=== PATIENT | female | born 1990 | race Caucasian/White ===

== ENCOUNTER 2017-04-12 19:14 | Emergency (ER) | payer OTHER ==
--- NOTE | 2017-04-12 19:26 | ER Report ---
History and Physical Time Seen By MD: 19:25 HPI/ROS CHIEF COMPLAINT: Abdominal pain HISTORY OF PRESENT ILLNESS: Patient awoke at 0800 with abdominal pain diffuse in the right lower quadrant. Appetite has been poor. Diarrhea 1. Nausea without vomiting. Possible somewhat late on her menstrual cycle reports she has moved recently and is sinking up with other females in her dwelling. She is sexually active. No pelvic pain or vaginal bleeding. REVIEW OF SYSTEMS: Constitutional: No fever, positive chills. Eyes: No discharge. ENT: No sore throat. Cardiovascular: No chest pain, no palpitations. Respiratory: No cough, no shortness of breath. Gastrointestinal: No bloody stools Genitourinary: No hematuria. Musculoskeletal: No back pain. Skin: No rashes. Neurological: No headache. Allergies: Coded Allergies: No Known Drug Allergies (Unverified , 04/12/17) Home Meds No Active Prescriptions or Reported Meds Constitutional Vital Sign - Last 24 Hours 04/12/17 04/12/17 04/12/17 04/12/17 19:15 19:44 19:45 20:00 Temp 98.2 Pulse 102 119 Resp 16 B/P (MAP) 124/88 120/78 (92) 124/76 (92) Pulse Ox 93 99 O2 Delivery Room Air 04/12/17 04/12/17 04/12/17 04/12/17 20:15 20:30 20:45 21:15 Pulse 95 97 108 104 Pulse Ox 97 96 95 98 04/12/17 21:50 Pulse 98 Resp 16 B/P (MAP) 112/73 (86) Pulse Ox 92 O2 Delivery Room Air Intake and Output 04/12/17 04/12/17 04/13/17 15:00 23:00 07:00 Intake Total 50 ml Balance 50 ml Physical Exam General Appearance: The patient is alert, has no immediate need for airway protection and no signs of toxicity. Appears sick but not toxic Eyes: Pupils equal and round no pallor or injection. ENT, Mouth: Mucous membranes are moist. Respiratory: There are no retractions, lungs are clear to auscultation. Cardiovascular: Regular rate and rhythm. No murmurs gallops or rubs Gastrointestinal: Abdomen is soft and diffusely tender, tenderness is most prominent in the right lower quadrant, no masses, bowel sounds normal. : pelvic, lube technician Lili Cook; copious green discharge pours from vaginal vault; no adnexal mass, tenderness with cervical motion (+chandlier's sign) Neurological: A and O 4 tenderness for cranial nerves intact motor and sensation grossly intact Skin: Warm and dry, no rashes. Musculoskeletal: Neck is supple non tender. Extremities are nontender, nonswollen and have full range of motion. No edema DIFFERENTIAL DIAGNOSIS: After history and physical exam differential diagnosis was considered for appendicitis, diverticulitis, enteritis, colitis, IBS. No signs of AAA. This is an incomplete list. Medical Decision Making Data Points Result Diagram: 04/12/17202204/12/172022 Laboratory Hematology Test 04/12/17 19:30 04/12/17 20:23 Urine Color Straw Urine Clarity Clear Urine pH 6.0 pH (4.8-9.5) Urine Specific [place] 1.002 Urine Protein Negative mg/dL (NEGATIVE) Urine Glucose (UA) Negative mg/dL (NEGATIVE) Urine Ketones Negative mg/dL (NEGATIVE) Urine Blood Moderate (NEGATIVE) Urine Nitrite Negative (NEGATIVE) Urine Bilirubin Negative (NEGATIVE) Urine Urobilinogen Negative mg/dL (0.2-1.9) Urine Leukocyte Esterase Large (NEGATIVE) Urine RBC 6 /HPF (0-2/HPF) Urine WBC 28 /HPF (0-5/HPF) Urine Squamous Epithelial Cells Many /LPF (</=FEW) Urine Bacteria Negative /HPF (NONE-FEW) Urine Mucus None /HPF (NONE-FEW) Red Blood Count 4.99 M/uL (4.17-5.56) Mean Corpuscular Volume 87.5 fL (80.0-96.0) Mean Corpuscular Hemoglobin 30.0 pg (26.0-33.0) Mean Corpuscular Hemoglobin Concent 34.3 g/dL (32.0-36.0) Red Cell Distribution Width 13.0 % (11.5-14.5) Mean Platelet Volume 9.5 fL (7.2-11.1) Neutrophils (%) (Auto) 80.1 % (39.4-72.5) Lymphocytes (%) (Auto) 12.1 % (17.6-49.6) Monocytes (%) (Auto) 7.3 % (4.1-12.4) Eosinophils (%) (Auto) 0.2 % (0.4-6.7) Basophils (%) (Auto) 0.3 % (0.3-1.4) Nucleated RBC Relative Count (auto) 0.0 /100WBC Neutrophils # (Auto) 13.1 K/uL (2.0-7.4) Lymphocytes # (Auto) 2.0 K/uL (1.3-3.6) Monocytes # (Auto) 1.2 K/uL (0.3-1.0) Eosinophils # (Auto) 0.0 K/uL (0.0-0.5) Basophils # (Auto) 0.0 K/uL (0.0-0.1) Nucleated RBC Absolute Count (auto) 0.01 K/uL Sodium Level 137 mmol/L (137-145) Potassium Level 3.9 mmol/L (3.5-5.0) Chloride Level 101 mmol/L (98-107) Carbon Dioxide Level 25 mmol/L (22-31) Blood Urea Nitrogen 9 mg/dl (7-18) Creatinine 0.70 mg/dl (0.52-1.04) Glomerular Filtration Rate Calc > 60.0 Random Glucose 96 mg/dl (75-110) Calcium Level 9.2 mg/dl (8.4-10.2) Total Bilirubin 1.2 mg/dl (0.2-1.3) Aspartate Amino Transf (AST/SGOT) 15 U/L (0-35) Alanine Aminotransferase (ALT/SGPT) 36 U/L (0-56) Alkaline Phosphatase 62 U/L (0-126) Total Protein 7.5 gm/dl (6.3-8.2) Albumin 4.1 g/dl (3.5-5.0) Lipase 108 U/L (23-300) Human Chorionic Gonadotropin, Qual Negative (NEGATIVE) Chemistry Test 04/12/17 19:30 04/12/17 20:23 Urine Color Straw Urine Clarity Clear Urine pH 6.0 pH (4.8-9.5) Urine Specific [place] 1.002 Urine Protein Negative mg/dL (NEGATIVE) Urine Glucose (UA) Negative mg/dL (NEGATIVE) Urine Ketones Negative mg/dL (NEGATIVE) Urine Blood Moderate (NEGATIVE) Urine Nitrite Negative (NEGATIVE) Urine Bilirubin Negative (NEGATIVE) Urine Urobilinogen Negative mg/dL (0.2-1.9) Urine Leukocyte Esterase Large (NEGATIVE) Urine RBC 6 /HPF (0-2/HPF) Urine WBC 28 /HPF (0-5/HPF) Urine Squamous Epithelial Cells Many /LPF (</=FEW) Urine Bacteria Negative /HPF (NONE-FEW) Urine Mucus None /HPF (NONE-FEW) White Blood Count 16.3 k/uL (4.5-11.0) Red Blood Count 4.99 M/uL (4.17-5.56) Hemoglobin 15.0 g/dL (12.0-16.0) Hematocrit 43.7 % (34.0-47.0) Mean Corpuscular Volume 87.5 fL (80.0-96.0) Mean Corpuscular Hemoglobin 30.0 pg (26.0-33.0) Mean Corpuscular Hemoglobin Concent 34.3 g/dL (32.0-36.0) Red Cell Distribution Width 13.0 % (11.5-14.5) Platelet Count 241 K/uL (150-450) Mean Platelet Volume 9.5 fL (7.2-11.1) Neutrophils (%) (Auto) 80.1 % (39.4-72.5) Lymphocytes (%) (Auto) 12.1 % (17.6-49.6) Monocytes (%) (Auto) 7.3 % (4.1-12.4) Eosinophils (%) (Auto) 0.2 % (0.4-6.7) Basophils (%) (Auto) 0.3 % (0.3-1.4) Nucleated RBC Relative Count (auto) 0.0 /100WBC Neutrophils # (Auto) 13.1 K/uL (2.0-7.4) Lymphocytes # (Auto) 2.0 K/uL (1.3-3.6) Monocytes # (Auto) 1.2 K/uL (0.3-1.0) Eosinophils # (Auto) 0.0 K/uL (0.0-0.5) Basophils # (Auto) 0.0 K/uL (0.0-0.1) Nucleated RBC Absolute Count (auto) 0.01 K/uL Glomerular Filtration Rate Calc > 60.0 Calcium Level 9.2 mg/dl (8.4-10.2) Total Bilirubin 1.2 mg/dl (0.2-1.3) Aspartate Amino Transf (AST/SGOT) 15 U/L (0-35) Alanine Aminotransferase (ALT/SGPT) 36 U/L (0-56) Alkaline Phosphatase 62 U/L (0-126) Total Protein 7.5 gm/dl (6.3-8.2) Albumin 4.1 g/dl (3.5-5.0) Lipase 108 U/L (23-300) Human Chorionic Gonadotropin, Qual Negative (NEGATIVE) Urinalysis Test 04/12/17 19:30 Urine Color Straw Urine Clarity Clear Urine pH 6.0 pH (4.8-9.5) Urine Specific [place] 1.002 Urine Protein Negative mg/dL (NEGATIVE) Urine Glucose (UA) Negative mg/dL (NEGATIVE) Urine Ketones Negative mg/dL (NEGATIVE) Urine Blood Moderate (NEGATIVE) Urine Nitrite Negative (NEGATIVE) Urine Bilirubin Negative (NEGATIVE) Urine Urobilinogen Negative mg/dL (0.2-1.9) Urine Leukocyte Esterase Large (NEGATIVE) Urine RBC 6 /HPF (0-2/HPF) Urine WBC 28 /HPF (0-5/HPF) Urine Squamous Epithelial Cells Many /LPF (</=FEW) Urine Bacteria Negative /HPF (NONE-FEW) Urine Mucus None /HPF (NONE-FEW) Reviewed and discussed with the patient consistent with infectious process such as PID. EKG/Imaging Imaging Images and radiology report reviewed and results discussed with the patient ED Course/Re-evaluation ED Course Workup and plan for CT imaging was discussed and agreed upon. IV fluids pain medicine Pepcid and Zofran for nausea. Decision to Disposition Date: Apr 12, 2017 Decision to Disposition Time: 22:31 Depart Departure Latest Vital Signs Vital Signs Date Time Temp Pulse Resp B/P (MAP) Pulse Ox O2 Delivery O2 Flow Rate FiO2 04/12/17 21:50 98 16 112/73 (86) 92 Room Air 04/12/17 19:15 98.2 Impression: Primary Impression: Pelvic inflammatory disease (PID) Condition: Improved Disposition: HOME OR SELF-CARE Referrals: EMILIANO WU MD 5 Days New Scripts Doxycycline Hyclate (DOXYCYCLINE HYCLATE) 100 Mg Capsule 100 MG PO BID for 10 Days, #20 CAPSULE Prov: MIGUEL OSBORN MD 04/12/17 Hydrocodone Bit/Acetaminophen (NORCO 5-325 TABLET) 1 Each Tablet 1 EACH PO Q6H for PAIN for 7 Days, #20 TAB Prov: MIGUEL OSBORN MD 04/12/17 Patient Instructions: Pelvic Inflammatory Disease (ED) MIGUEL OSBORN MD Apr 12, 2017 19:26
[2017-04-12] MEDS ORDERED: ONDANSETRON 4 MG/2 ML VIAL IVP ONE (19:55)
[2017-04-12] MEDS ORDERED: FAMOTIDINE(*) 20MG/50ML PREMIX 50 ML IVPB ONE (19:55)
[2017-04-12] MEDS ORDERED: MORPHINE 4 MG/ML SYR IVP ONE (19:55)
[2017-04-12 20:32] LABS: PLATELET COUNT, AUTOMATED 241 K/uL (150-450)
--- NOTE | 2017-04-12 20:50 | RADIOLOGY IMAGING REPORT ---
FACILITY: [facility] - [place] PATIENT NAME: Angely Chester : 1990 MR: [id number] V: [id number] EXAM DATE: ORDERING PHYSICIAN: MIGUEL OSBORN TECHNOLOGIST: Location: [facility] Patient: Angely Chester : 1990 Visit/Account:[id number] Date of Sevice: 04/12/2017 EXAMINATION: Portable chest radiograph single view at 04/12/2017 20:29 HISTORY: Shortness of breath. COMPARISON: None. FINDINGS: A single portable AP view of the chest is obtained. Lines/tubes: None. Lungs/pleura: Negative. Heart: Negative. Mediastinum: Negative. Bony structures/body wall: Negative. IMPRESSION: No acute cardiopulmonary process. Report Dictated By: Justen Ruiz MD at 04/12/2017 8:45 PM Report E-Signed By: Justen Ruiz MD at 04/12/2017 8:46 PM WSN:[id number]
[2017-04-12] MEDS ORDERED: NS 0.9% 50 ML VIAL 50 ML ONE (20:58)
[2017-04-12] MEDS ORDERED: IOPAMIDOL 76% 75 ML INFUS BTL 75 ML ONE (20:58)
--- NOTE | 2017-04-12 21:47 | RADIOLOGY IMAGING REPORT ---
[place] [facility] [place] NAME: Angely Chester : 1990 MR: [id number] V: [id number] EXAM DATE: ORDERING PHYSICIAN: MIGUEL OSBORN TECHNOLOGIST: Location: [facility] Patient: Angely Chester : 1990 Visit/Account:[id number] Date of Sevice: 04/12/2017 EXAMINATION: CT abdomen and pelvis with IV contrast HISTORY: Right lower quadrant pain. Evaluate for appendicitis. TECHNIQUE: Axial CT images of the abdomen and pelvis were obtained with IV contrast, with coronal a nd sagittal 2D reconstructed images. One of the following dose optimization techniques was utilized in the performance of this exam: Autom ated exposure control; adjustment of the mA and/or kV according to the patient's size; or use of an i terative reconstruction technique. Specific details can be referenced in the facility's radiology C T exam operational policy. Contrast: 75 mL of IV Isovue-370. COMPARISON: None. FINDINGS: Liver: Negative. Gallbladder and bile ducts: Negative. Spleen: Negative. Pancreas: Negative. Adrenal glands: Negative. Kidneys: Normal size and morphology of both kidneys. No urinary calculi or hydronephrosis. There is a 1.5 cm cyst in the lower pole of the left kidney. Bowel and peritoneum: The small bowel and colon are normal in caliber, without evidence of obstructi on or any focal inflammatory process. Unremarkable appendix in the right lower quadrant. No free intr aperitoneal air. Pelvic structures: There is a peripherally enhancing cystic mass located along the central cervix , measuring 3.1 x 3.4 x 3.6 cm (AP x Trans x CC). This contains at least one internal septation. Norm al uterine size and morphology. The bilateral adnexa appear mildly enlarged and heterogeneous, with a likely dominant 3.6 x 1.9 cm cystic focus in the right adnexa. There is some soft tissue stranding a djacent to the adnexal structures bilaterally with a trace amount of free fluid in the pelvis and ext ending along the cul-de-sac. The urinary bladder is unremarkable by CT. Lymph node assessment: No pathologically enlarged lymph nodes in the abdomen or pelvis. Vessels: Negative. Musculoskeletal: Negative. Body wall: Negative. Lung bases: Negative. IMPRESSION: 1. Abnormal appearance of the cervix, with a peripherally enhancing 3.6 cm cystic lesion along the ce ntral cervix. Differential considerations include cystic cervicitis, a large nabothian cyst with poss ible superimposed infection/inflammation, or cervical malignancy. Correlate clinically and with physi zenon exam findings on pelvic exam. Gynecologic consultation may be appropriate. 2. Small amount of free fluid in the pelvis. Both adnexa appear mildly enlarged and heterogeneous, po sarah characterized by CT. Possible cystic component on the right. Pelvic inflammatory disease could b e considered. If clinically indicated, follow-up pelvic ultrasound could be performed. 3. Unremarkable appendix. No other acute intra-abdominal findings. Findings were discussed with MIGUEL OSBORN at 04/12/2017 9:39 PM. Report Dictated By: Kareem Ramirez MD at 04/12/2017 9:25 PM Report E-Signed By: Kareem Ramirez MD at 04/12/2017 9:42 PM WSN:[id number]
[2017-04-12] MEDS ORDERED: cefTRIAXone 1 GM VIAL IVP ONE (22:25)
[2017-04-12] MEDS ORDERED: AZITHROMYCIN 250 MG TAB PO ONE (22:25)
[2017-04-12] MEDS ORDERED: HYDR-4309 PO (22:34)
[2017-04-12] MEDS ORDERED: DOXY-181 PO (22:34)
[2017-04-12 23:00] VITALS: BP 116/68
== END 2017-04-12 23:07 | disposition home or self-care (01) ==
LOC: ER 19:42
DX: N73.9 Female pelvic inflammatory disease, unspecified (principal)
CPT/HCPCS: 36415; 71010; 74177; 81001; 83690; 84703; 85025; 87070; 87205; 87210; 87491; 87591; 96365; 96375; 99284; J0696; J2270; J2405; J3490; J7050; Q0144; Q9967; 82040; 82247; 82310; 82374; 82435; 82565; 82947; 84075; 84132; 84155; 84295; 84450; 84460; 84520